=== PATIENT | female | born 1980 | race Two or more races ===

== ENCOUNTER 2019-08-09 22:22 | Outpatient (CLI) | payer OTHER | END 2019-08-11 14:09 | disposition home or self-care (01) | LOC: OBS/DEL 22:22 | DX: O13.3 Gestational [pregnancy-induced] hypertension without significant proteinuria, third trimester (principal); O99.513 Diseases of the respiratory system complicating pregnancy, third trimester; O26.813 Pregnancy related exhaustion and fatigue, third trimester ==

== ENCOUNTER 2019-08-14 17:01 | Outpatient (CLI) | payer OTHER | END 2019-08-15 14:39 | disposition home or self-care (01) | LOC: EDSTATUS 17:01 → OBS/DEL 17:02 → EDSTATUS 17:02 → OBS/DEL 17:03 | DX: O13.3 Gestational [pregnancy-induced] hypertension without significant proteinuria, third trimester (principal); O36.8193 Decreased fetal movements, unspecified trimester, fetus 3; O09.513 Supervision of elderly primigravida, third trimester ==

== ENCOUNTER 2019-08-21 16:56 | Inpatient (IN) | payer OTHER ==
[~2019-08-21] VITALS: Ht 180.3 cm; Wt 2.7 kg
[2019-08-22] MEDS ORDERED: PRENATAL CAPLE1 EAC1 PO (07:48)
== END 2019-08-25 14:15 | DRG 788 ==
LOC: OBS/DEL 16:56 → LDR 08-22 07:23 → OB/GYN 08-22 07:23 → LDR 08-22 15:21 → OB/GYN 08-22 16:04
PROVIDERS: ADMIT Obstetrics & Gynecology
PROC: 4A1HXCZ Monitoring of Products of Conception, Cardiac Rate, External Approach (ICD-10-PCS; 2019-08-22)
PROC: 4A033R1 Measurement of Arterial Saturation, Peripheral, Percutaneous Approach (ICD-10-PCS; 2019-08-22)
PROC: 10D00Z1 Extraction of Products of Conception, Low, Open Approach (ICD-10-PCS; principal; 2019-08-22 14:00)
DX: O13.3 Gestational [pregnancy-induced] hypertension without significant proteinuria, third trimester (principal); Z3A.38 38 weeks gestation of pregnancy; Z37.0 Single live birth